=== PATIENT | female | born 1965 | race Caucasian/White ===

== ENCOUNTER 2020-08-31 09:00 | Emergency (ER) | payer OTHER ==
--- NOTE | 2020-08-31 09:08 | ERPHSYRPT ---
- History of Present Illness Time Seen by Provider: 08/31/20 09:08 Source: patient Exam Limitations: no limitations Physician History: This is a 54-year-old white female who has a history of gastroesophageal reflux disease, anxiety, mild depression, postmenopausal and significant smoking history that is long-term. She smokes 1/2 packs of cigarettes a day. She does use a Ventolin inhaler occasionally. In the last several nights she has noticed that she has had some symptoms of mild cough, wheezing and shortness of breath. However, last night her shortness of breath was more significant and not helped with her Ventolin inhaler. It persisted this morning and therefore she is here for evaluation and treatment. She denies chest pain. She denies abdominal pain . She has not had fevers. She has no nausea vomiting or diarrhea. Timing/Duration: day(s) (The last few days), worse Activities at Onset: activity Severity of Dyspnea-Max: moderate Severity of Dyspnea-Current: moderate Possible Cause: occasional episodes Modifying Factors: Improves With: albuterol inhaler, coughing Associated Symptoms: anxiety, cough, No chest pain/discomfort, No fever, No weakness Allergies/Adverse Reactions: No Known Drug Allergies Allergy (Verified 08/31/20 09:16) Home Medications: Albuterol Sulfate [Ventolin Hfa] 1 gm IH UD 08/31/20 [History] Lorazepam 0.5 mg [Ativan 0.5 MG] 0.5 mg PO BID 08/31/20 [History] PARoxetine HCL [Paroxetine HCl] 40 mg PO DAILY 08/31/20 [History] Trazodone HCl 100 mg PO HS 08/31/20 [History] Zolpidem Tartrate 10 mg [Ambien 10 MG] 10 mg PO HS 08/31/20 [History] Travel Risk - International Travel Have you traveled outside of the country in past 3 weeks: No - Coronavirus Screening Are you exhibiting any of the following symptoms?: No Close contact with a COVID-19 positive Pt in past 14-21 Days: No - Review of Systems Constitutional: No Symptoms Eyes: No Symptoms Ears, Nose, & Throat: No Symptoms Respiratory: Cough, Dyspnea, Wheezing Cardiac: No Symptoms Abdominal/Gastrointestinal: No Symptoms Genitourinary Symptoms: No Symptoms Musculoskeletal: No Symptoms Skin: No Symptoms Neurological: No Symptoms Psychological: No Symptoms Endocrine: No Symptoms Hematologic/Lymphatic: No Symptoms Immunological/Allergic: No Symptoms All Other Systems: Reviewed and Negative - Past Medical History Pertinent Past Medical History: Yes Endocrine Medical History: No Pertinent History Musculoskeletal History: No Pertinent History GI Medical History: GERD History: No Pertinent History Psycho-Social History: Anxiety, Depression - Past Surgical History Past Surgical History: Yes - Nursing Vital Signs Nursing Vital Signs: Initial Vital Signs Temperature 98.3 F 08/31/20 09:02 Pulse Rate 86 08/31/20 09:02 Respiratory Rate 16 08/31/20 09:02 Blood Pressure 172/102 08/31/20 09:02 O2 Sat by Pulse Oximetry 94 L 08/31/20 09:02 Pain Scale Pain Intensity 0 - Physical Exam General Appearance: mild distress, alert, anxiety, thin Eye Exam: PERRL/EOMI, eyes nml inspection Ears, Nose, Throat Exam: hearing grossly normal, normal ENT inspection, normal pharynx Neck Exam: normal inspection, non-tender, supple, full range of motion Respiratory Exam: respiratory distress (Mild), airway intact, wheezing (Mild bi lateral, diffuse), No chest tenderness Cardiovascular/Chest Exam: normal heart sounds, regular rate/rhythm, normal peripheral pulses Abdominal/Gastrointestinal Exam: soft, normal bowel sounds, No tenderness Rectal Exam: not done Extremity Exam: non-tender, normal range of motion, normal inspection Neurologic Exam: alert, oriented x 3, cooperative, switcher II-XII nml as tested, nml cerebellar function, nml station & gait, sensation nml Skin Exam: normal color, warm, dry Lymphatic Exam: No adenopathy SpO2 Interpretation: borderline oxygenation O2 Delivery: Room Air - Course Nursing assessment & vital signs reviewed: Yes EKG Interpreted by Me: RATE (60), Sinus Rhythm, NORMAL AXIS, NORMAL INTERVALS, NORMAL QRS, NORMAL ST-T, Other (No acute ischemic changes.) Ordered Tests: Active Orders 24 hr Category Date Time Status EKG-ER Only STAT Care 08/31/20 09:09 Active IV Insertion STAT Care 08/31/20 09:09 Active Pulse Oximetry (ED) STAT Care 08/31/20 09:09 Active Rectal Temperature STAT Care 08/31/20 09:09 Active CHEST 1 VIEW (PORTABLE) Stat Exams 08/31/20 09:09 Taken BLOOD CULTURE Stat Lab 08/31/20 09:35 Received CBC W DIFF Stat Lab 08/31/20 09:09 Completed CMP Stat Lab 08/31/20 09:25 Completed D-DIMER QUANTITATIVE Stat Lab 08/31/20 09:25 Completed INFLUENZA A+B BARRY Stat Lab 08/31/20 09:30 Completed Lactic Acid Stat Lab 08/31/20 09:09 Completed Lactic Acid Stat Lab 08/31/20 11:48 Completed MAGNESIUM Stat Lab 08/31/20 09:25 Completed NT PRO BNP Stat Lab 08/31/20 09:25 Completed TROPONIN Q3H Lab 08/31/20 09:25 Completed TROPONIN Q3H Lab 08/31/20 12:15 Completed TROPONIN Q3H Lab 08/31/20 15:15 Ordered TROPONIN Q3H Lab 08/31/20 18:15 Ordered TROPONIN Q3H Lab 08/31/20 21:15 Ordered Respiratory Therapy Assessment DAILY RT 08/31/20 09:40 Completed Medication Summary Discontinued Medications Generic Name Dose Route Start Last Admin Trade Name Freq PRN Reason Stop Dose Admin Albuterol/Ipratropium Confirm 08/31/20 09:34 Duoneb 0.5-3 Mg/3 Ml Neb Administered 08/31/20 09:35 Dose 3 ml IH .STK-MED ONE Albuterol/Ipratropium 3 ml 08/31/20 09:39 08/31/20 09:40 Duoneb 0.5-3 Mg/3 Ml Neb IH 08/31/20 09:40 3 ml STAT ONE Administration Methylprednisolone Sodium Succinate 125 mg 08/31/20 09:09 08/31/20 09:22 Solu-Medrol 125 Mg IV 08/31/20 09:10 125 mg STAT ONE Administration Methylprednisolone Sodium Succinate Confirm 08/31/20 09:21 Solu-Medrol 125 Mg Administered 08/31/20 09:22 Dose 125 mg .ROUTE .STK-MED ONE Lab/Rad Data: Laboratory Result Diagrams 08/31/20 09:09 08/31/20 09:25 Laboratory Results 08/31/20 08/31/20 08/31/20 Range/Units 12:15 11:48 09:30 WBC (4.0-10.5) K/mm3 RBC (4.1-5.4) M/mm3 Hgb (12.0-16.0) gm/dl Hct (35-47) % MCV (78-100) fl MCH (26-32) pg MCHC (32-36) g/dl RDW (11.5-14.0) % Plt Count (150-450) K/mm3 MPV (7.5-11.0) fl Gran % (36.0-66.0) % Eos # (Auto) (0-0.5) Absolute Lymphs (auto) (1.0-4.6) Absolute Monos (auto) (0.0-1.3) Lymphocytes % (24.0-44.0) % Monocytes % (0.0-12.0) % Eosinophils % (0.00-5.0) % Basophils % (0.0-0.4) % Absolute Granulocytes (1.4-6.9) Basophils # (0-0.4) D-Dimer (215-500) ng/mL Sodium (137-145) mmol/L Potassium (3.5-5.1) mmol/L Chloride (98-107) mmol/L Carbon Dioxide (22-30) mmol/L Anion Gap (5-15) MEQ/L BUN (7-17) mg/dL Creatinine (0.52-1.04) mg/dL Estimated GFR ML/MIN Glucose (74-106) mg/dL Lactic Acid 1.4 (0.4-2.0) Calcium (8.4-10.2) mg/dL Magnesium (1.6-2.3) mg/dL Total Bilirubin (0.2-1.3) mg/dL AST (14-36) U/L ALT (0-35) U/L Alkaline Phosphatase (38-126) U/L Troponin I 0.059 H* (0.000-0.034) ng/mL NT-Pro-B Natriuret Pep (0-900) pg/mL Serum Total Protein (6.3-8.2) g/dL Albumin (3.5-5.0) g/dL Influenza Type A Ag NEGATIVE (NEGATIVE) Influenza Type B Ag NEGATIVE (NEGATIVE) 08/31/20 08/31/20 08/31/20 Range/Units 09:25 09:25 09:25 WBC (4.0-10.5) K/mm3 RBC (4.1-5.4) M/mm3 Hgb (12.0-16.0) gm/dl Hct (35-47) % MCV (78-100) fl MCH (26-32) pg MCHC (32-36) g/dl RDW (11.5-14.0) % Plt Count (150-450) K/mm3 MPV (7.5-11.0) fl Gran % (36.0-66.0) % Eos # (Auto) (0-0.5) Absolute Lymphs (auto) (1.0-4.6) Absolute Monos (auto) (0.0-1.3) Lymphocytes % (24.0-44.0) % Monocytes % (0.0-12.0) % Eosinophils % (0.00-5.0) % Basophils % (0.0-0.4) % Absolute Granulocytes (1.4-6.9) Basophils # (0-0.4) D-Dimer < 215 L (215-500) ng/mL Sodium 140 (137-145) mmol/L Potassium 3.8 (3.5-5.1) mmol/L Chloride 105 (98-107) mmol/L Carbon Dioxide 28 (22-30) mmol/L Anion Gap 10.8 (5-15) MEQ/L BUN 13 (7-17) mg/dL Creatinine 0.87 (0.52-1.04) mg/dL Estimated GFR > 60.0 ML/MIN Glucose 158 H (74-106) mg/dL Lactic Acid (0.4-2.0) Calcium 9.2 (8.4-10.2) mg/dL Magnesium 2.1 (1.6-2.3) mg/dL Total Bilirubin 0.40 (0.2-1.3) mg/dL AST 24 (14-36) U/L ALT 15 (0-35) U/L Alkaline Phosphatase 29 L (38-126) U/L Troponin I 0.043 H* (0.000-0.034) ng/mL NT-Pro-B Natriuret Pep 1030 H (0-900) pg/mL Serum Total Protein 6.9 (6.3-8.2) g/dL Albumin 4.0 (3.5-5.0) g/dL Influenza Type A Ag (NEGATIVE) Influenza Type B Ag (NEGATIVE) 08/31/20 08/31/20 Range/Units 09:09 09:09 WBC 11.4 H (4.0-10.5) K/mm3 RBC 4.10 (4.1-5.4) M/mm3 Hgb 13.8 (12.0-16.0) gm/dl Hct 42.4 (35-47) % MCV 103.4 H (78-100) fl MCH 33.7 H (26-32) pg MCHC 32.5 (32-36) g/dl RDW 12.4 (11.5-14.0) % Plt Count 198 (150-450) K/mm3 MPV 11.0 (7.5-11.0) fl Gran % 79.6 H (36.0-66.0) % Eos # (Auto) 0.50 (0-0.5) Absolute Lymphs (auto) 1.05 (1.0-4.6) Absolute Monos (auto) 0.73 (0.0-1.3) Lymphocytes % 9.3 L (24.0-44.0) % Monocytes % 6.4 (0.0-12.0) % Eosinophils % 4.4 (0.00-5.0) % Basophils % 0.3 (0.0-0.4) % Absolute Granulocytes 9.04 H (1.4-6.9) Basophils # 0.03 (0-0.4) D-Dimer (215-500) ng/mL Sodium (137-145) mmol/L Potassium (3.5-5.1) mmol/L Chloride (98-107) mmol/L Carbon Dioxide (22-30) mmol/L Anion Gap (5-15) MEQ/L BUN (7-17) mg/dL Creatinine (0.52-1.04) mg/dL Estimated GFR ML/MIN Glucose (74-106) mg/dL Lactic Acid 2.8 H (0.4-2.0) Calcium (8.4-10.2) mg/dL Magnesium (1.6-2.3) mg/dL Total Bilirubin (0.2-1.3) mg/dL AST (14-36) U/L ALT (0-35) U/L Alkaline Phosphatase (38-126) U/L Troponin I (0.000-0.034) ng/mL NT-Pro-B Natriuret Pep (0-900) pg/mL Serum Total Protein (6.3-8.2) g/dL Albumin (3.5-5.0) g/dL Influenza Type A Ag (NEGATIVE) Influenza Type B Ag (NEGATIVE) - Progress Progress: improved, re-examined Air Movement: good Progress Note: 08/31/20 10:44 cxr- no acute process 08/31/20 10:45 Medical decision making: This patient presented with mild cough and shortness of breath with associated wheezing. She is a smoker. She does not have elevated cholesterol. She has not been diagnosed with hypertension. She is never seen a exterminator helper. She does not have a history of cardiac work-up or history of chest pain. She currently does not have chest pain. However, she did have a slightly elevated troponin level. We will repeat the troponin level in 3 hours. If this level is the same or elevated we will transfer the patient to [facility]. If this level is now normal, I will attempt to contact her exterminator helper to obtain some recommendations for patient who has no chest pain and who had a slightly elevated initial troponin level that subsequently decreased to the normal range and 3 hours. Patient agrees to stay here in the emergency department until we determine her disposition. 08/31/20 13:07 Initial phone call was made to [facility]. However, they are on diversion and only taking trauma patients at this time. I then contacted [facility] and spoke with Dr. Holguin who is a hospitalist log pond worker. I reviewed the patient history, condition, EKG findings, x-ray findings and laboratory results. He accepts the patient in transfer. Blood Culture(s) Obtained: No Antibiotics given: No Counseled pt/family regarding: lab results, diagnosis, need for follow-up, rad results - Departure Departure Disposition: Transfer Clinical Impression: NSTEMI (non-ST elevated myocardial infarction) Condition: Stable Critical Care Time: Yes Critical Care Time(excluding separately billable procedures): Critical 30-74 mins Referrals: BENTLEY VARGAS [Primary Care Provider] -
[2020-08-31] MEDS ORDERED: solu-MEDROL 125 MG IV ONE (09:09)
[2020-08-31] MEDS ORDERED: solu-MEDROL 125 MG ONE (09:21)
[2020-08-31] MEDS ORDERED: DUONEB 0.5-3 MG/3 ml Neb IH ONE ×2 (09:34→09:39)
[2020-08-31 09:48] LABS: Absolute Neutrophil Ct (ANC) 9.04 (1.4-6.9); BASOPHIL % 0.3 % (0.0-0.4); Basophil (Absolute #) 0.03 (0-0.4); Eosinophil % 4.4 % (0.00-5.0); Hematocrit 42.4 % (35-47); Hemoglobin 13.8 gm/dl (12.0-16.0); Lymphocyte (Absolute #) 1.05 (1.0-4.6); Lymphocytes % 9.3 % (24.0-44.0); Mean Cell Volume 103.4 fl (78-100); Mean Corpuscular Hemoglobin 33.7 pg (26-32); Mean Corpuscular Hgb Concent. 32.5 g/dl (32-36); Monocyte (Absolute #) 0.73 (0.0-1.3); Monocytes % 6.4 % (0.0-12.0); Neutrophil % 79.6 % (36.0-66.0); Platelet Count 198 K/mm3 (150-450); Red Cell Distribution Width 12.4 % (11.5-14.0); White Blood Count 11.4 K/mm3 (4.0-10.5)
[2020-08-31 10:03] LABS: ALKALINE PHOSPHATASE 29 U/L (38-126); ANION GAP 10.8 MEQ/L (5-15); BLOOD UREA NITROGEN 13 mg/dL (7-17); CHLORIDE 105 mmol/L (98-107); Calcium 9.2 mg/dL (8.4-10.2); Carbon Dioxide 28 mmol/L (22-30); Creatinine 1 0.87 mg/dL (0.52-1.04); EST GLOMERULAR FILTRATION RATE > 60.0 ML/MIN; Glucose 158 mg/dL (74-106); MAGNESIUM 2.1 mg/dL (1.6-2.3); NT PRO BNP 1030 pg/mL (0-900); Potassium 3.8 mmol/L (3.5-5.1); SGOT/AST 24 U/L (14-36); SGPT/ALT 15 U/L (0-35); SODIUM 140 mmol/L (137-145); Total Protein 6.9 g/dL (6.3-8.2)
[2020-08-31 10:36] LABS: INFLUENZA A NEGATIVE (NEGATIVE); INFLUENZA B NEGATIVE (NEGATIVE)
[2020-08-31 13:11] VITALS: BP 113/70; PULSE 77; O2SAT 94
--- NOTE | 2020-08-31 19:17 | XRAY ---
Indication: Short of breath. Comparison: None Portable apical lordotic chest hyperinflated and clear with incidental right lung calcified granulomas. Heart is not enlarged. Bony thorax intact with mild degenerative changes and minimal scoliosis. Impression: Nonacute inflated chest with chronic features.
== END 2020-08-31 14:01 | disposition short-term general hospital (02) ==
LOC: ED 09:00
DX: I21.4 Non-ST elevation (NSTEMI) myocardial infarction (principal); K21.9 Gastro-esophageal reflux disease without esophagitis; F41.9 Anxiety disorder, unspecified; F32.9 Major depressive disorder, single episode, unspecified; F17.210 Nicotine dependence, cigarettes, uncomplicated; Z79.899 Other long term (current) drug therapy; R05 Cough; R06.00 Dyspnea, unspecified; R06.2 Wheezing
CPT/HCPCS: 36000; 36415; 71045; 80053; 83605; 83735; 83880; 84484; 85025; 85379; 87040; 87400; 93005; 94640; 94760; 96374; 99285; 99291; J2930; A9270-GY

== ENCOUNTER 2022-12-20 21:38 | Emergency (ER) | payer BC ==
--- NOTE | 2022-12-20 21:52 | ERPHSYRPT ---
- History of Present Illness Time Seen by Provider: 12/20/22 21:52 Source: patient, EMS Exam Limitations: no limitations Physician History: Progressive shortness of breath over the past few days, cough, some sputum, no fever or CP. Hx of heavy smoking until 2 years ago, vapes now. Dx with asthma (according to her) about 2 years ago with no prior hx of respiratory problems, sounds more like dx should be COPD. She has albuterol MDI and neb at home. Apparently, dx with NSSTEMI about 2 years ago, associated with a similar problem of respiratory distress. Unclear what type of cardiac work-up has been done in the past, does not sound like she had a cath. Timing/Duration: yesterday, resolved prior to arrival, gradual onset Activities at Onset: activity Severity of Dyspnea-Max: severe Severity of Dyspnea-Current: severe Possible Cause: occasional episodes Modifying Factors: Improves With: albuterol inhaler, albuterol nebulizer. Worsens With: activity, exertion Associated Symptoms: denies symptoms Allergies/Adverse Reactions: No Known Drug Allergies Allergy (Verified 12/20/22 22:02) Home Medications: Albuterol Sulfate [Ventolin Hfa] 1 gm IH UD 08/31/20 [History] Lorazepam 0.5 mg [Ativan 0.5 MG] 0.5 mg PO BID 08/31/20 [History] PARoxetine HCL [Paroxetine HCl] 40 mg PO DAILY 08/31/20 [History] Trazodone HCl 100 mg PO HS 08/31/20 [History] Zolpidem Tartrate 10 mg [Ambien 10 MG] 10 mg PO HS 08/31/20 [History] Atorvastatin Calcium [Lipitor] 40 mg PO DAILY 12/20/22 [History] Esomeprazole Magnesium [Nexium] 40 mg PO DAILY 12/20/22 [History] Fluticasone/Salmeterol 500/50* [Advair 500-50 Diskus] 1 puff IH BID 12/20/22 [History] - Review of Systems Constitutional: No Symptoms Eyes: No Symptoms Ears, Nose, & Throat: No Symptoms Respiratory: Cough, Dyspnea, Wheezing Cardiac: No Symptoms Abdominal/Gastrointestinal: No Symptoms Genitourinary Symptoms: No Symptoms Musculoskeletal: No Symptoms Skin: No Symptoms Neurological: No Symptoms Psychological: No Symptoms Endocrine: No Symptoms Hematologic/Lymphatic: No Symptoms Immunological/Allergic: No Symptoms All Other Systems: Reviewed and Negative - Past Medical History Pertinent Past Medical History: Yes Endocrine Medical History: No Pertinent History Musculoskeletal History: No Pertinent History GI Medical History: GERD History: No Pertinent History Psycho-Social History: Anxiety, Depression Other Medical History: allergies - Past Surgical History Past Surgical History: Yes Musculoskeletal: Orthopedic Surgery - Social History Smoking Status: Current every day smoker How long have you smoked: 30 Exposure to second hand smoke: Yes Drug Use: marijuana Patient Lives Alone: No - Nursing Vital Signs Nursing Vital Signs: Initial Vital Signs Pulse Rate 105 H 12/20/22 21:40 Respiratory Rate 24 12/20/22 21:40 Blood Pressure 160/110 12/20/22 21:40 O2 Sat by Pulse Oximetry 90 L 12/20/22 21:40 Pain Scale Pain Intensity 0 - Physical Exam General Appearance: severe distress, alert, anxiety Eye Exam: PERRL/EOMI Ears, Nose, Throat Exam: hearing grossly normal, normal ENT inspection Neck Exam: normal inspection, non-tender Respiratory Exam: airway intact, diminished breath sounds, prolonged expirations , rhonchi, wheezing Cardiovascular/Chest Exam: normal heart sounds, regular rate/rhythm Abdominal/Gastrointestinal Exam: soft, normal bowel sounds Rectal Exam: deferred Extremity Exam: non-tender, normal range of motion Neurologic Exam: alert, oriented x 3, cooperative Skin Exam: normal color, warm, dry SpO2 Interpretation: borderline oxygenation, ABG ordered, O2 applied SpO2: 90 O2 Delivery: High Flow - Course Nursing assessment & vital signs reviewed: Yes EKG Interpreted by Me: RATE (96), Sinus Rhythm, NORMAL AXIS, NORMAL INTERVALS, NORMAL QRS, Non-specific ST Changes - Radiology Exams Chest X-ray Interpretation: Interpreted by me, Teleradiologist Report, Pneumonia (faint RLL infiltrate) Ordered Tests: Active Orders 24 hr Category Date Time Status EKG-ER Only STAT Care 12/21/22 01:56 Active CHEST 1 VIEW (PORTABLE) Stat Exams 12/20/22 22:18 Completed ABG [ARTERIAL BLOOD GASES] Stat Lab 12/20/22 22:06 Completed BLOOD CULTURE Stat Lab 12/21/22 00:00 Received BNPII [NT PRO BNPII] Stat Lab 12/21/22 00:00 Completed CBC W DIFF Stat Lab 12/20/22 22:35 Completed CMP Stat Lab 12/20/22 22:35 Completed Lactic Acid Stat Lab 12/21/22 01:14 Completed TROPONIN Q4H Lab 12/21/22 00:00 Completed TROPONIN Q4H Lab 12/21/22 01:16 Completed TROPONIN Q4H Lab 12/21/22 05:38 Completed Respiratory Therapy Assessment DAILY RT 12/20/22 22:20 Active Medication Summary Discontinued Medications Generic Name Dose Route Start Last Admin Trade Name Mauricioq PRN Reason Stop Dose Admin Albuterol Sulfate 2.5 mg 12/20/22 22:10 12/20/22 22:00 Albuterol Sulfate 2.5 Mg/3 Ml Neb IH 12/20/22 22:11 2.5 mg STAT ONE Administration Aspirin 324 mg 12/21/22 02:03 12/21/22 02:05 Aspirin 81 Mg Tab.Chew PO 12/21/22 02:04 324 mg STAT ONE Administration Enoxaparin Sodium 60 mg 12/21/22 04:27 12/21/22 04:43 Enoxaparin Sodium 60 Mg/0.6 Ml Syringe SQ 12/21/22 04:28 60 mg STAT ONE Administration Ceftriaxone Sodium/Dextrose 1 g in 50 mls @ 100 mls/hr 12/21/22 01:45 12/21/22 02:26 Rocephin 1 Gm-D5w 50 Ml Bag IV 12/21/22 02:14 Infused STAT STA Infusion Ceftriaxone Sodium/Dextrose Confirm 12/21/22 01:47 Rocephin 1 Gm-D5w 50 Ml Bag Administered 12/21/22 01:48 Dose 1 g in 50 mls @ ud IV .STK-MED ONE Azithromycin 500 mg in 250 mls @ 250 mls/hr 12/21/22 04:27 12/21/22 06:26 Zithromax 500 Mg/ 250 Ml Nacl Premix IV 12/21/22 05:26 Infused STAT STA Infusion Azithromycin Confirm 12/21/22 04:38 Zithromax 500 Mg/ 250 Ml Nacl Premix Administered 12/21/22 04:39 Dose 500 mg in 250 mls @ ud IV .STK-MED ONE Magnesium Sulfate 1 gm 12/20/22 22:19 12/20/22 23:04 Magnesium Sulfate Injection IV 12/20/22 22:20 1 gm ONCE ONE Administration Magnesium Sulfate Confirm 12/20/22 23:03 Magnesium Sulfate Injection Administered 12/20/22 23:04 Dose 1 gm .ROUTE .STK-MED ONE Lab/Rad Data: Laboratory Result Diagrams 12/20/22 22:35 12/20/22 22:35 Laboratory Results 12/21/22 12/21/22 12/21/22 Range/Units 05:38 01:46 01:16 WBC (4.0-10.5) x10^3/uL RBC (4.1-5.4) x10^6/uL Hgb (12.0-16.0) g/dL Hct (35-47) % MCV (78-100) fL MCH (26-32) pg MCHC (32-36) g/dL RDW (11.5-14.0) % Plt Count (150-450) x10^3/uL MPV (7.5-11.0) fL Gran % (36.0-66.0) % Immature Gran % (Auto) (0.00-0.4) % Nucleat RBC Rel Count (0.00-0.1) % Eos # (Auto) (0-0.5) x10^3/uL Immature Gran # (Auto) (0.00-0.03) x10^3u/L Absolute Lymphs (auto) (1.0-4.6) x10^3/uL Absolute Monos (auto) (0.0-1.3) x10^3/uL Absolute Nucleated RBC (0.00-0.01) x10^3u/L Lymphocytes % (24.0-44.0) % Monocytes % (0.0-12.0) % Eosinophils % (0.00-5.0) % Basophils % (0.0-0.4) % Absolute Granulocytes (1.4-6.9) x10^3/uL Basophils # (0-0.4) x10^3/uL Puncture Site pCO2 (35-45) mmHg pO2 (75-100) mmHg Base Excess (-2.0-2.0) O2 Saturation (94-100) g/dF ABG pH (7.35-7.45) ABG HCO3 (22-28) ABG O2 Sat (Measured) (95-100) % Gordy Test A-a Gradient a/A Ratio Hemoglobin Carboxyhemoglobin (0.0-6.9) % THgb Methemoglobin (1.4-1.5) % Potassium (3.5-5.1) Temperature C POC O2 Flow Rate % Sodium (137-145) mmol/L Chloride (98-107) mmol/L Carbon Dioxide (22-30) mmol/L Anion Gap (5-15) MEQ/L BUN (7-17) mg/dL Creatinine (0.52-1.04) mg/dL Estimated GFR ML/MIN Glucose (74-106) mg/dL Lactic Acid (0.4-2.0) Calcium (8.4-10.2) mg/dL Total Bilirubin (0.2-1.3) mg/dL AST (14-36) U/L ALT (0-35) U/L Alkaline Phosphatase (38-126) U/L Troponin I 0.519 H* 0.533 H* (0.000-0.034) ng/mL NT-Pro-B Natriuret Pep (<300) pg/mL Serum Total Protein (6.3-8.2) g/dL Albumin (3.5-5.0) g/dL Influenza Type A Ag NEGATIVE (NEGATIVE) Influenza Type B Ag NEGATIVE (NEGATIVE) RSV (PCR) NEGATIVE (NEGATIVE) SARS-CoV-2 (PCR) NEGATIVE (NEGATIVE) 12/21/22 12/21/22 12/21/22 Range/Units 01:14 00:00 00:00 WBC (4.0-10.5) x10^3/uL RBC (4.1-5.4) x10^6/uL Hgb (12.0-16.0) g/dL Hct (35-47) % MCV (78-100) fL MCH (26-32) pg MCHC (32-36) g/dL RDW (11.5-14.0) % Plt Count (150-450) x10^3/uL MPV (7.5-11.0) fL Gran % (36.0-66.0) % Immature Gran % (Auto) (0.00-0.4) % Nucleat RBC Rel Count (0.00-0.1) % Eos # (Auto) (0-0.5) x10^3/uL Immature Gran # (Auto) (0.00-0.03) x10^3u/L Absolute Lymphs (auto) (1.0-4.6) x10^3/uL Absolute Monos (auto) (0.0-1.3) x10^3/uL Absolute Nucleated RBC (0.00-0.01) x10^3u/L Lymphocytes % (24.0-44.0) % Monocytes % (0.0-12.0) % Eosinophils % (0.00-5.0) % Basophils % (0.0-0.4) % Absolute Granulocytes (1.4-6.9) x10^3/uL Basophils # (0-0.4) x10^3/uL Puncture Site pCO2 (35-45) mmHg pO2 (75-100) mmHg Base Excess (-2.0-2.0) O2 Saturation (94-100) g/dF ABG pH (7.35-7.45) ABG HCO3 (22-28) ABG O2 Sat (Measured) (95-100) % Gordy Test A-a Gradient a/A Ratio Hemoglobin Carboxyhemoglobin (0.0-6.9) % THgb Methemoglobin (1.4-1.5) % Potassium (3.5-5.1) Temperature C POC O2 Flow Rate % Sodium (137-145) mmol/L Chloride (98-107) mmol/L Carbon Dioxide (22-30) mmol/L Anion Gap (5-15) MEQ/L BUN (7-17) mg/dL Creatinine (0.52-1.04) mg/dL Estimated GFR ML/MIN Glucose (74-106) mg/dL Lactic Acid 0.9 (0.4-2.0) Calcium (8.4-10.2) mg/dL Total Bilirubin (0.2-1.3) mg/dL AST (14-36) U/L ALT (0-35) U/L Alkaline Phosphatase (38-126) U/L Troponin I 0.015 (0.000-0.034) ng/mL NT-Pro-B Natriuret Pep 1200 (<300) pg/mL Serum Total Protein (6.3-8.2) g/dL Albumin (3.5-5.0) g/dL Influenza Type A Ag (NEGATIVE) Influenza Type B Ag (NEGATIVE) RSV (PCR) (NEGATIVE) SARS-CoV-2 (PCR) (NEGATIVE) 12/20/22 12/20/22 12/20/22 Range/Units 22:35 22:35 22:06 WBC 17.8 H (4.0-10.5) x10^3/uL RBC 4.26 (4.1-5.4) x10^6/uL Hgb 13.9 (12.0-16.0) g/dL Hct 44.3 (35-47) % MCV 104.0 H (78-100) fL MCH 32.6 H (26-32) pg MCHC 31.4 L (32-36) g/dL RDW 13.0 (11.5-14.0) % Plt Count 308 (150-450) x10^3/uL MPV 10.5 (7.5-11.0) fL Gran % 84.3 H (36.0-66.0) % Immature Gran % (Auto) 0.6 H (0.00-0.4) % Nucleat RBC Rel Count 0.0 (0.00-0.1) % Eos # (Auto) 0.04 (0-0.5) x10^3/uL Immature Gran # (Auto) 0.10 H (0.00-0.03) x10^3u/L Absolute Lymphs (auto) 2.07 (1.0-4.6) x10^3/uL Absolute Monos (auto) 0.51 (0.0-1.3) x10^3/uL Absolute Nucleated RBC 0.00 (0.00-0.01) x10^3u/L Lymphocytes % 11.6 L (24.0-44.0) % Monocytes % 2.9 (0.0-12.0) % Eosinophils % 0.2 (0.00-5.0) % Basophils % 0.4 (0.0-0.4) % Absolute Granulocytes 15.04 H (1.4-6.9) x10^3/uL Basophils # 0.07 (0-0.4) x10^3/uL Puncture Site LEFT BRACHIAL pCO2 39 (35-45) mmHg pO2 64 L (75-100) mmHg Base Excess -4.9 L (-2.0-2.0) O2 Saturation 87.4 L (94-100) g/dF ABG pH 7.33 L (7.35-7.45) ABG HCO3 20.6 L (22-28) ABG O2 Sat (Measured) 89.8 L (95-100) % Gordy Test NOT APPLICABLE A-a Gradient 315 a/A Ratio 0.17 Hemoglobin 14.2 Carboxyhemoglobin 2.0 (0.0-6.9) % THgb Methemoglobin 0.7 L (1.4-1.5) % Potassium 4.0 4.0 (3.5-5.1) Temperature 37.0 C POC O2 Flow Rate 60 % Sodium 139 (137-145) mmol/L Chloride 103 (98-107) mmol/L Carbon Dioxide 22 (22-30) mmol/L Anion Gap 18.3 H (5-15) MEQ/L BUN 22 H (7-17) mg/dL Creatinine 0.94 (0.52-1.04) mg/dL Estimated GFR > 60.0 ML/MIN Glucose 115 H (74-106) mg/dL Lactic Acid (0.4-2.0) Calcium 8.7 (8.4-10.2) mg/dL Total Bilirubin 0.50 (0.2-1.3) mg/dL AST 118 H (14-36) U/L ALT 40 H (0-35) U/L Alkaline Phosphatase 66 (38-126) U/L Troponin I (0.000-0.034) ng/mL NT-Pro-B Natriuret Pep (<300) pg/mL Serum Total Protein 7.8 (6.3-8.2) g/dL Albumin 4.3 (3.5-5.0) g/dL Influenza Type A Ag (NEGATIVE) Influenza Type B Ag (NEGATIVE) RSV (PCR) (NEGATIVE) SARS-CoV-2 (PCR) (NEGATIVE) - Progress Progress: improved Air Movement: fair Progress Note: 12/21/22 04:21 Between EMS and ER, has had several neb tx, epi, steroids, IV mag, rocephin. She has improved, now on 3 L per NC with sat mid 90 range. Much less respiratory distress. Not septic. Initial troponin normal, second one elevated to around 0.5 range. Repeat EKG unchanged. She has no CP, but due to elevated troponin we contacted [facility], she is accepted in transfer by the hospitalist, Dr. Ring, he recommended give lovenox, we can transfer when a bed available. Add zithromax abx, continue oxygen and other supportive care. Turn over to Dr. Jim in ED at 0700. 12/21/22 06:42 Blood Culture(s) Obtained: Yes Antibiotics given: Yes Medical Desision Making - Diagnostic Testing Diagnostic test were ordered, analyzed, and reviewed by me: Yes Radiological Interpretation: Interpreted by me, Teleradiologist Report - Risk of complications The pt has a high risk of morbidity or mortality based on: Decision regarding hospitilization or escalation of hosp level of care - Departure Departure Disposition: Transfer Clinical Impression: Non-STEMI (non-ST elevated myocardial infarction) Pneumonia Qualifiers: Pneumonia type: due to unspecified organism Laterality: right Lung location: lower lobe of lung Qualified Code(s): J18.9 - Pneumonia, unspecified organism Condition: Stable Critical Care Time: Yes Critical Care Time(excluding separately billable procedures): Critical 30-74 mins Referrals: BENTLEY VARGAS NP [Primary Care Provider] - Follow up/PCP as directed
[2022-12-20] MEDS ORDERED: PROVENTIL 2.5 MG/3 ML NEB IH ONE (22:10)
[2022-12-20 22:11] LABS: A-aADO2 315; ABG HEMOGLOBIN 14.2; ABG SITE LEFT BRACHIAL; ARTERIAL BLD GAS O2 SATURATION 89.8 % (95-100); ARTERIAL BLOOD GAS BASE EXCESS -4.9 (-2.0-2.0); ARTERIAL BLOOD GAS FIO2 60 %; ARTERIAL BLOOD GAS PCO2 39 mmHg (35-45); ARTERIAL BLOOD GAS PO2 64 mmHg (75-100); ARTERIAL BLOOD GAS pH 7.33 (7.35-7.45); HCO3- 20.6 (22-28); HGB O2 SAT 87.4 g/dF (94-100); Methhemoglobin 0.7 % (1.4-1.5); paO2 pAO1 0.17
[2022-12-20] MEDS ORDERED: Magnesium Sulfate 1 GM/2 ML VIAL IV ONE (22:19)
[2022-12-20 22:37] LABS: Absolute Neutrophil Ct (ANC) 15.04 x10^3/uL (1.4-6.9); BASOPHIL % 0.4 % (0.0-0.4); Basophil (Absolute #) 0.07 x10^3/uL (0-0.4); Eosinophil % 0.2 % (0.00-5.0); Eosinophil (Absolute #) 0.04 x10^3/uL (0-0.5); Hematocrit 44.3 % (35-47); Hemoglobin 13.9 g/dL (12.0-16.0); IMMATURE GRAN % 0.6 % (0.00-0.4); Lymphocyte (Absolute #) 2.07 x10^3/uL (1.0-4.6); Lymphocytes % 11.6 % (24.0-44.0); Mean Corpuscular Hemoglobin 32.6 pg (26-32); Mean Corpuscular Hgb Concent. 31.4 g/dL (32-36); Mean Platelet Volume 10.5 fL (7.5-11.0); Monocyte (Absolute #) 0.51 x10^3/uL (0.0-1.3); Monocytes % 2.9 % (0.0-12.0); Neutrophil % 84.3 % (36.0-66.0); Platelet Count 308 x10^3/uL (150-450); Red Blood Count 4.26 x10^6/uL (4.1-5.4); White Blood Count 17.8 x10^3/uL (4.0-10.5)
[2022-12-20 22:50] LABS: ALBUMIN 4.3 g/dL (3.5-5.0); ALKALINE PHOSPHATASE 66 U/L (38-126); ANION GAP 18.3 MEQ/L (5-15); BLOOD UREA NITROGEN 22 mg/dL (7-17); CHLORIDE 103 mmol/L (98-107); Calcium 8.7 mg/dL (8.4-10.2); Carbon Dioxide 22 mmol/L (22-30); Creatinine 1 0.94 mg/dL (0.52-1.04); EST GLOMERULAR FILTRATION RATE > 60.0 ML/MIN; Glucose 115 mg/dL (74-106); SGOT/AST 118 U/L (14-36); SGPT/ALT 40 U/L (0-35); SODIUM 139 mmol/L (137-145); Total Protein 7.8 g/dL (6.3-8.2)
[2022-12-20] MEDS ORDERED: Magnesium Sulfate 1 GM/2 ML VIAL ONE (23:03)
--- NOTE | 2022-12-21 01:32 | XRAY ---
CLINICAL HISTORY:Wheezing; COMPARISON:None; TECHNIQUES:X-ray chest examination is performed in frontal/AP, upright 1 views; FINDINGS: The rotation of the patient could be due to cervicothoracic scoliosis. A patchy area of air space shadow seen at the right lower zone. Inhomogeneous haziness is noted in bilateral mid and lower zones/ground glass opacities. Stable multiple calcific foci are seen at the right ramírez and right lower zone of the lung suggestive of calcifying granulomas. Heart size within normal limit. Left cardiophrenic and both costophrenic angles are clear. Marginal osteophytes are seen at multiple thoracic spines. No acute osseous abnormality is seen. IMPRESSION: Possibility of a new finding of pulmonary infection/infiltration at the right lower zone. New above-mentioned ground glass opacities of the lungs could be due to interstitial lung disease. HRCT is suggested. Electronically Signed by: Sade Wagner MD. (12/21/2022 00:29:07 BAG WASHER)
[2022-12-21] MEDS ORDERED: ROCEPHIN 1 Gm-D5w 50 ml Bag** 1 G/50 ML IVPB IV STA (01:45)
[2022-12-21] MEDS ORDERED: ROCEPHIN 1 Gm-D5w 50 ml Bag** 1 G/50 ML IVPB IV ONE (01:47)
[2022-12-21] MEDS ORDERED: BABY ASPIRIN 81 MG CHEW PO ONE (02:03)
[2022-12-21 02:26] LABS: INFLUENZA A NEGATIVE (NEGATIVE); INFLUENZA B NEGATIVE (NEGATIVE); RESPIRATORY SYNCTIAL VIRUS NEGATIVE (NEGATIVE); SARS-CoV-2 Xpert Express NEGATIVE (NEGATIVE)
[2022-12-21] MEDS ORDERED: ENOXAPARIN SODIUM SQ ONE (04:27)
[2022-12-21] MEDS ORDERED: Zithromax 500 MG/ 250 ML NaCl Premix 500 MG/250 ML IVPB IV STA (04:27)
[2022-12-21] MEDS ORDERED: Zithromax 500 MG/ 250 ML NaCl Premix 500 MG/250 ML IVPB IV ONE (04:38)
[2022-12-21 10:55] VITALS: BP 134/79; PULSE 91; O2SAT 98
== END 2022-12-21 11:17 | disposition short-term general hospital (02) ==
LOC: ED 21:38
DX: I21.4 Non-ST elevation (NSTEMI) myocardial infarction (principal); J18.9 Pneumonia, unspecified organism; R06.02 Shortness of breath; R05.1 Acute cough; Z79.899 Other long term (current) drug therapy; Z72.0 Tobacco use
CPT/HCPCS: 0241U; 36000; 36415; 36600; 71045; 80053; 82375; 82803; 83605; 83880; 84484; 85025; 87040; 93005; 94640; 96365; 96367; 96372; 96374; 99285; 99291; J0456; J0696; J1650; J3475; J7609; A9270-GY

== ENCOUNTER 2024-10-16 06:27 | Day surgery (SDC) | payer OTHER ==
[2024-10-16] MEDS: Lactated Ringers 1,000 ML IV SCH (06:49)
[2024-10-16 07:06] VITALS: RESP 18
[2024-10-16 07:24] LABS: ANION GAP 15.5 MEQ/L (5-15); Calcium 9.8 mg/dL (8.4-10.2); Creatinine 1 0.91 mg/dL (0.52-1.04); EST GLOMERULAR FILTRATION RATE 73.1 ML/MIN
[2024-10-16 07:26] LABS: Potassium 4.5 mmol/L (3.5-5.1)
[2024-10-16] MEDS ORDERED: propofoL IV ONE ×2 (07:56→10:48)
[2024-10-16 08:55] VITALS: TEMP 97.1; O2SAT 99
[2024-10-16] MEDS ORDERED: APRESOLINE 20 MG/ML INJ ONE (09:21)
[2024-10-16] MEDS: APRESOLINE 20 MG/ML INJ IV PRN (09:22)
[2024-10-16 09:47] VITALS: BP 154/72; PULSE 62
--- NOTE | 2024-10-17 12:58 | OP ---
SURGERY DATE/TIME: 10/16/2024 [id number] PREOPERATIVE DIAGNOSIS: Rectal bleeding. POSTOPERATIVE DIAGNOSES: 1) Hiatal hernia. 2) Diverticulosis. PROCEDURES: Esophagogastroduodenoscopy and colonoscopy. SURGEON: Carlos Eduardo Aiken MD. ANESTHESIA: Medications were given by the anesthesia department. INDICATIONS: The patient is a 59-year-old white female presenting now for intermittent rectal bleeding. The patient is noted to be on aspirin and naproxen. The patient reports no pain with the bleeding. She has never had a colonoscopy before. The patient is felt to need to have endoscopic evaluation. She was apprised of the risks of the procedure and the risks of perforation, phlebitis, untoward reaction to medication, bleeding and missed lesions. The patient verbalized her understanding and desire to have the procedure performed. DESCRIPTION OF PROCEDURE AND FINDINGS: Patient was given medication by the anesthesia department. She had continuous pulse oximetry, ECG monitoring, intermittent blood pressure monitoring, and end-tidal CO2 monitoring during the examination. She was placed in the left lateral decubitus position. A bite block was placed and a flexible Olympus gastroscope was used to intubate the oropharynx. The view of larynx was obtained and was normal. Scope was easily introduced into the esophagus. There appeared to be the presence of a hiatal hernia, but otherwise no esophageal findings that were abnormal. The scope was entered in the stomach where normal gastric rugal folds were seen. The gastric reynolds was suctioned dry and the stomach was re-insufflated. The rugal fold distended nicely with insufflation of air. The scope was passed along the greater curvature of the stomach to the antrum. Pylorus was encountered and intubated. Duodenum was inspected and found to be normal. Scope was withdrawn toward the stomach again, retroflexed view was obtained of the lesser curvature, fundus, and cardia regions. In the stomach again was noted with a hiatal hernia. No other mucosa lesions being noted. The scope was removed. Next, a digital rectal examination was performed and revealed normal anal sphincter tone, no masses, or hemorrhoids were present. Flexible Olympus videocolonoscope was used to intubate the rectum. A view of the colon was developed sequentially to the cecum. Upon insertion and withdrawal including retroflexion of the rectum was noted scattered diverticula but no other mucosal lesions were notes. Internal hemorrhoids were present. The scope was removed. The patient tolerated the procedure well and sent back to outpatient recovery in good condition. The prep was noted to be fair to good.
== END 2024-10-16 09:40 | disposition home or self-care (01) ==
LOC: SDC 06:27
PROVIDERS: ATTEND Family Medicine
DX: K44.9 Diaphragmatic hernia without obstruction or gangrene (principal); K62.5 Hemorrhage of anus and rectum; K57.30 Diverticulosis of large intestine without perforation or abscess without bleeding; K64.8 Other hemorrhoids
CPT/HCPCS: 36415; 80048; 93005; J0360; J2704